=== PATIENT | female | born 1985 | race Caucasian/White ===

== ENCOUNTER 2023-08-03 19:59 | Emergency (ER) | payer OTHER ==
[~2023-08-03] VITALS: Ht 160 cm; Wt 61.2 kg
[2023-08-03 21:04] VITALS: TEMP 98.4
[2023-08-03 21:44] VITALS: BP 128/72; O2SAT 99
== END 2023-08-03 21:44 | disposition home or self-care (01) ==
LOC: ER 20:06
DX: L76.34 Postprocedural seroma of skin and subcutaneous tissue following other procedure (principal)